=== PATIENT | female | born 1940 | race Native Hawaiian/Other Pacific Islander ===

== ENCOUNTER 2025-03-02 08:54 | Emergency (ER) | payer MEDICARE ==
[~2025-03-02] VITALS: Ht 160 cm; Wt 54.4 kg
[2025-03-02] MEDS ORDERED: CYAN100020 SL (09:17)
[2025-03-02] MEDS ORDERED: FENO145T21 PO (09:17)
[2025-03-02] MEDS ORDERED: POTA10CA43 PO (09:17)
[2025-03-02] MEDS ORDERED: ERGO500040 PO (09:17)
[2025-03-02] MEDS ORDERED: VALS1TAB6 PO (09:17)
[2025-03-02] MEDS ORDERED: DONE5TAB34 PO (09:17)
[2025-03-02] MEDS ORDERED: ACETAMINOPHEN 500 MG TABLET ONE (09:21)
[2025-03-02] MEDS ORDERED: IBUPROFEN 200 MG TABLET ONE (09:21)
[2025-03-02] MEDS: IBUPROFEN 200 MG TABLET PO ONE (09:26)
[2025-03-02] MEDS: ACETAMINOPHEN 500 MG TABLET PO ONE (09:27)
[2025-03-02 10:42] VITALS: BP 154/80; TEMP 97.8; O2SAT 98
== END 2025-03-02 10:44 | disposition home or self-care (01) ==
LOC: ER 08:54 → EDBD 08:54 → ER 10:44
DX: S00.11XA Contusion of right eyelid and periocular area, initial encounter (principal); E78.5 Hyperlipidemia, unspecified; F03.90 Unspecified dementia, unspecified severity, without behavioral disturbance, psychotic disturbance, mood disturbance, and anxiety; I10 Essential (primary) hypertension; Z88.7 Allergy status to serum and vaccine; W18.39XA Other fall on same level, initial encounter; Y93.89 Activity, other specified; Y92.89 Other specified places as the place of occurrence of the external cause; Y99.8 Other external cause status
CPT/HCPCS: 70486; A4606; A4663; A9150